=== PATIENT | male | born 1955 | race Two or more races ===

== ENCOUNTER 2019-09-09 11:48 | Emergency (ER) | payer BC ==
[~2019-09-09] VITALS: Ht 162.6 cm; Wt 63.5 kg
[2019-09-09 11:57] VITALS: BP 145/70
== END 2019-09-09 13:07 | disposition home or self-care (01) ==
LOC: ER 11:48
DX: S83.92XA Sprain of unspecified site of left knee, initial encounter (principal); X50.0XXA Overexertion from strenuous movement or load, initial encounter; Y93.89 Activity, other specified; Y99.8 Other external cause status; Y92.89 Other specified places as the place of occurrence of the external cause
CPT/HCPCS: 73562

== ENCOUNTER 2023-08-04 18:57 | Emergency (ER) | payer BC, MEDICARE ==
[~2023-08-04] VITALS: Ht 162.6 cm; Wt 63.5 kg
[2023-08-04] MEDS ORDERED: MORPHINE SULFATE 4 MG/ML SYR/VIAL IV ONE (20:00)
[2023-08-04] MEDS ORDERED: HYDROcodone-ACET 5/325MG TAB PO ONE (22:45)
[2023-08-04] MEDS ORDERED: HYDR-4902 PO (22:53)
[2023-08-05 01:00] VITALS: PULSE 67; RESP 18; TEMP 98.9; O2SAT 96
[2023-08-05] MEDS ORDERED: ONDANSETRON HCL 4 MG/2 ML VIAL IV ONE (01:15)
[2023-08-05 01:34] VITALS: BP 115/68; PULSE 60; RESP 18
== END 2023-08-05 02:29 | disposition home or self-care (01) ==
LOC: EDBD 18:57 → ER 18:57
DX: S22.42XA Multiple fractures of ribs, left side, initial encounter for closed fracture (principal); R51.9 Headache, unspecified; M54.2 Cervicalgia; Y04.2XXA Assault by strike against or bumped into by another person, initial encounter; Y93.89 Activity, other specified; Y92.89 Other specified places as the place of occurrence of the external cause; Y99.8 Other external cause status
CPT/HCPCS: 70450; 70486; 71260; 72125; 74177; 96374; 96375; 99285; J2270; J2405; Q9967